=== PATIENT | male | born 1995 | race Caucasian/White ===

== ENCOUNTER 2022-06-25 19:09 | Emergency (ER) | payer SELFPAY ==
[2022-06-25] MEDS ORDERED: Lidocaine 1% (PF) 30 ML VIAL ONE (19:40)
== END 2022-06-25 20:08 | disposition home or self-care (01) ==
LOC: MADERS 19:09
DX: N49.2 Inflammatory disorders of scrotum (principal); F17.210 Nicotine dependence, cigarettes, uncomplicated
CPT/HCPCS: 55100; 87070; 87205; J2001